=== PATIENT | female | born 1950 | race Caucasian/White ===

== ENCOUNTER 2021-01-31 05:30 | Inpatient (IN) | payer MEDICARE, OTHER, SELFPAY ==
[2021-01-31] VITALS (42 sets, daily range): BP systolic 102–150; BP diastolic 56–103; PULSE 54–209; RESP 14–31; TEMP 36.1–36.8; O2SAT 93–100; BMI 40.6; BMI 41.2
--- NOTE | 2021-01-31 05:38 | EKG12_ITS ---
Test Reason : PALPITATIONS Blood Pressure : / mmHG Vent. Rate : 202 BPM Atrial Rate : 208 BPM P-R Int : 000 ms QRS Dur : 074 ms QT Int : 214 ms P-R-T Axes : 000 022 235 degrees QTc Int : 392 ms Atrial fibrillation Marked ST abnormality, possible inferolateral subendocardial injury Abnormal ECG Confirmed by EZEQUIEL ADAN, LORENZO ([id number]), photograph editor MICHAEL CURTIS ([id number]) on 02/02/2021 9:41:57 AM Referred By: PL Confirmed By:LORENZO NIEVES MD
--- NOTE | 2021-01-31 05:38 | RAD_ITS ---
STUDY: X-RAY CHEST REASON FOR EXAM: Female, 70 years old. chest pain TECHNIQUE: Single AP portable view of the chest. COMPARISON: None. FINDINGS: The lungs are clear and expanded. There is no demonstrated pleural abnormality. Normal size heart. Normal mediastinum and dilcia. Normal visualized pulmonary arteries. There is atherosclerotic calcification of the aortic arch. Normal visualized thoracic spine. Normal visualized ribs, clavicles, and shoulders. There is no demonstrated abnormality of the visualized soft tissue structures of the upper abdomen. RAD/Chest 1 View (Portable) IMPRESSION: No evidence for acute cardiopulmonary pathology. Electronically Signed: Gio Will MD at 6:36 EDT , Service support ,
--- NOTE | 2021-01-31 05:40 | EDS_ITS ---
HPI History of Present Illness Chief Complaint: Palpitations Informant: patient and spouse/S.O. Narrative Narrative: Patient presents with some palpitations and mild aching in her chest. She states she was in bed. She felt fine. She then rolled over on her side and it started. She states she might have been a little bit short of breath or may be just anxious as to why this was happening. She states she is really not hurting now. She states the symptoms come in waves. She has had no recent travel surgery immobilization personal or family history of DVT or PE. She has never had heart problems related to vascular disease nor rhythm problems. No history of thyroid disease. She did take tizanidine before this but has taken it before without problems. No new or changed medications. Never been nauseated. Was not diaphoretic. Not syncopal or presyncopal. She has never had SVT or atrial fibrillation or any rhythm abnormalities. Nothing seems to make it better or worse. PFSH PFSH Medical History Carpal tunnel syndrome on both sides Diabetes GERD (gastroesophageal reflux disease) Home Medications famotidine 20 mg PO QHS 01/31/21 [History Last Taken Unknown] metformin 500 mg PO DAILY 01/31/21 [History Last Taken Unknown] pramipexole 0.375 mg PO QHS 01/31/21 [History Last Taken Unknown] tizanidine 4 mg PO Q8H PRN 01/31/21 [History Last Taken Unknown] tramadol 50 - 100 mg PO Q8H PRN 01/31/21 [History Last Taken Unknown] Allergy/AdvReac Type Severity Reaction Status Date / Time No Known Allergies Allergy Verified 01/31/21 05:34 Surgical History H/O gastric bypass Total knee replacement status Social History Smoking Status: Former smoker ROS ROS ED Constitutional Constitutional ED: Denies chills or fever(s) Eyes Eyes: Denies change in vision ENT ENT ED: Denies rhinorrhea or sore throat Cardiovascular Cardiovascular: Reports chest pain, palpitations and racing heartbeat Respiratory/Chest Respiratory/Chest: Reports dyspnea; Denies cough, dyspnea on exertion or sputum Gastrointestinal Gastrointestinal: Denies abdominal pain, nausea or vomiting Musculoskeletal Musculoskeletal: Denies arthralgias, back pain or neck pain Integumentary Denies rash Neurologic Neurologic: Denies headache(s), paresthesias or weakness Endocrine Endocrinology: Reports other Details: Patient is on Metformin for diabetes. ; Denies polydipsia or polyuria Allergic/Immunologic Allergic/Immunologic ED: Denies urticaria EXAM Physical Exam Const Vital Signs: 01/31/21 05:31 01/31/21 05:33 01/31/21 05:35 Temperature 96.9 F L Temperature Source Temporal Pulse Rate 190 H 209 H Respiratory Rate 18 17 Respiratory Effort Normal Respiratory Pattern Normal Blood Pressure 122/103 H Blood Pressure Mean 109 Blood Pressure Position Blood Pressure Location Pulse Ox 97 100 Oxygen Delivery Method Room Air Room Air 01/31/21 05:40 01/31/21 05:55 01/31/21 06:12 Temperature Temperature Source Pulse Rate 135 H 137 H Respiratory Rate 19 H 15 Respiratory Effort Respiratory Pattern Blood Pressure 141/65 H 130/84 H Blood Pressure Mean 90 99 Blood Pressure Position Semi-Fowlers Blood Pressure Location Right Arm Pulse Ox 97 98 Oxygen Delivery Method Room Air Room Air Room Air Positive well nourished and well developed Constitutional Narrative: Patient is sitting quietly in bed. She carries on a normal conversation. Although she is quite tachycardic, she is nontoxic in appearance. General Appearance ED: well developed and NAD; Negative for pallor HEENT Reports moist mucous membranes Eyes General Eye ED: Negative for pale conjunctiva or scleral icterus Neck no JVD Resp normal respiratory effort and clear to auscultation bilaterally Auscultation: Negative for rales, rhonchi or wheezes Cardio Rate: tachycardic Rhythm: abnormal rhythm GI normal to inspection, nondistended, normoactive bowel sounds and non-tender Palpation: soft Back/Spine no CVA tenderness Extremity normal to inspection General Extremety ED: Negative for edema or tenderness General Extremity: Negative for edema Neuro oriented x3 Sensorium / Orientation: alert Psych mental status grossly normal Skin no rashes or lesions noted General Skin Exam: Negative for jaundice or pallor MDM MDM MDM Narrative Medical decision making narrative: 06: 05 Heart rate is now down between 120 and 140. We will continue to watch. She may need further medications. We will watch blood pressure and heart rate and adjust incrementally. We have been able to get her down to about 120s. That is at 5 mg/h. We are turning up the drip to try to get better control. Patient's not having any chest ache or tightness or dyspnea now. The patient used to have sleep apnea. However, she lost 70 pounds after Neva-en-Y gastric bypass in about 2012. She has not needed it since. Her states that she used to snore but when she lost the weight she does not snore anymore. Lab Data Labs: Laboratory Results - last 24 hr 01/31/21 01/31/21 05:41 05:41 WBC 8.4 RBC 4.16 L Hgb 12.8 Hct 39.6 MCV 95.2 MCH 30.8 MCHC 32.3 RDW Std Deviation 43.9 RDW Coeff of Leo 12.6 Plt Count 285 MPV 10.0 Immature Gran % (Auto) 0.400 Neut % (Auto) 58.1 Lymph % (Auto) 32.9 [place] % (Auto) 7.5 Eos % (Auto) 0.6 Baso % (Auto) 0.5 Absolute Neuts (auto) 4.9 Absolute Lymphs (auto) 2.75 Nucleated RBC % 0 Sodium 140 Potassium 3.8 Chloride 108 H Carbon Dioxide 25.0 Anion Gap 7 BUN 18 Creatinine 0.68 Estim Creat Clear Calc 43.30 Est GFR (MDRD) Af Amer 110 Est GFR (MDRD) Non-Af 91 BUN/Creatinine Ratio 26.5 H Glucose 193 H Calcium 9.0 Troponin I High Sens 18 TSH 1.65 Radiography Diagnostic Testing: Radiology Impression Chest X-Ray 01/31/21 05:38 IMPRESSION: No evidence for acute cardiopulmonary pathology. Electronically Signed: Gio Will MD at 6:36 EDT , Service support , EKG Initial EKG: Comments: EKG shows atrial fibrillation with significant rapid ventricular rate of 202. Diffuse nonspecific ST and T wave changes. QRS duration and QTc are normal. No old for comparison. Critical Care Time Critical Care Time: Yes Critical care time (excluding procedures): 30-74 minutes and - (35 minutes of critical care time. Patient was seen immediately when she came in. We have adjusted medications. I have talked to the patient multiple times. I rechecked her multiple times and followed her rate. We are getting good control of her rate although is not down to totally normal. I have see) Discharge Plan Triage Chief Complaint: Palpitations ED Provider: Kailash Ramos Dx/Rx/DC Orders Clinical Impression: New onset atrial fibrillation, Atrial fibrillation with rapid ventricular response Prescriptions: No Action tramadol 50 mg Tablet 50 - 100 mg PO Q8H PRN (Reason: Pain) RF: 0 famotidine 20 mg Tablet 20 mg PO QHS RF: 0 metformin 500 mg Tablet Extended Release 24 Hr 500 mg PO DAILY RF: 0 tizanidine 4 mg Capsule 4 mg PO Q8H PRN (Reason: Pain) RF: 0 pramipexole 0.375 mg Tablet Extended Release 24 Hr 0.375 mg PO QHS RF: 0 Primary Care Provider: Care Physician,No Primary Referrals: [facility] Doctor,Out of [NON-STAFF] - Disposition Disposition: Acute Care Hospital [facility]
[2021-01-31] MEDS: Aspirin 81 MG TAB.CHEW 324 MG PO (05:50)
[2021-01-31] MEDS: 0.9% Normal Saline 1,000 ML 1000 ML IV (05:50)
[2021-01-31] MEDS: dilTIAZem 25 MG/5 ML Vial 10 MG IV BOLUS (05:50)
[2021-01-31 05:54] LABS: Absolute Lymphocyte Count 2.75 X10^3/uL (0.83-4.51); Absolute Neutrophil Count 4.9 X10^3/uL (2.0-7.7); Basophil# 0.04 X10^3/uL; Basophil% 0.5 % (0-1); Eosinophil# 0.05 X10^3/uL; Eosinophils% 0.6 % (0-5); Hematocrit 39.6 % (37-47); Hemoglobin 12.8 g/dL (12.0-15.0); Lymphocyte # 2.75 X10^3/ul (0.83-4.51); Lymphocyte % 32.9 % (19-41); Mean Corp Hgb Conc 32.3 g/dL (32-36); Mean Corpuscular Hgb 30.8 pg (27.0-32.0); Mean Corpuscular Volume 95.2 fL (81-99); Monocyte# 0.63 X10^3/uL; Monocyte% 7.5 % (0-10); NRBC Flagged by Analyzer 0 % (0-5); Neutrophil # 4.87 X10^3/uL (2.7-7.7); Neutrophil % 58.1 % (47-70); Platelet Count 285 K/mm3 (150-450); RBC Distribution Width CV 12.6 % (11.6-14.6); RBC Distribution Width SD 43.9 fl (35.1-43.9); Red Blood Count 4.16 M/mm3 (4.2-5.4); White Blood Count 8.4 K/mm3 (4.4-11.0)
[2021-01-31 06:20] LABS: Anion Gap 7 (5-15); BUN 18 mg/dL (7-18); BUN/Creat Ratio 26.5 RATIO (10-20); Chloride 108 mmol/L (98-107); Creatinine, Serum 0.68 mg/dL (0.55-1.02); EST Glomerular Filtration Rate 91 mL/min (>60); Est Glom Filt Rate - Afr Amer 110 mL/min (>60); Glucose 193 mg/dL (74-106); Potassium 3.8 mmol/L (3.5-5.1); Sodium Level 140 mmol/L (136-145); Thyroid Stim Hormone (TSH) 1.65 uIU/mL (0.358-3.74); Troponin-I HS 18 pg/mL (3.0-54.0)
--- NOTE | 2021-01-31 06:39 | PCM.HP.STD ---
HPI - General General Date of Admission: 01/31/21 Date of Service: 01/31/21 Chief Complaint: Palpitations, dyspnea. HPI Narrative The patient is a 70 y/o F w/ PMHx: Diabetes mellitus type II, Morbid Obesity, GERD, RLS, Fibromyalgia who presents to the [facility] ED on 01/31/21 with history of onset sudden palpitations while she was in bed, noted it occurred when she turned over with mild generalized ache sensation across the chest with mild associated dyspnea with no history of any prior similar episodes. She noted resolution of pain and dyspnea with rate improvement. She reported the discomfort as an ache only, 06/21. Work-up in the ED included T 96.9, heart rate initially 1 9209, improved currently to 137 on Cardizem drip, BP 130/84, respiratory rate 15, 98% on room air, CBC with WC 8.4, hemoglobin 12.8, platelet 285 without marked shift, BMP unremarkable aside glucose 193, TSH 1.65, high-sensitivity troponin 18, chest x-ray with no acute cardiopulmonary findings, EKG with atrial fibrillation with RVR. In the ED patient ministered Cardizem bolus 10 mg x 1 and transition eventually to Cardizem drip. In the ED patient administered aspirin 324 mg p.o. x1 as well as normal saline bolus. [facility] Medical History (Updated 01/31/21 @ 06:[address] Claribel Thomas MD) Carpal tunnel syndrome on both sides Diabetes Fibromyalgia GERD (gastroesophageal reflux disease) Morbid obesity RLS (restless legs syndrome) Home Medications famotidine 20 mg PO QHS 01/31/21 [History Last Taken Unknown] metformin 500 mg PO DAILY 01/31/21 [History Last Taken Unknown] pramipexole 0.375 mg PO QHS 01/31/21 [History Last Taken Unknown] tizanidine 4 mg PO Q8H PRN 01/31/21 [History Last Taken Unknown] tramadol 50 - 100 mg PO Q8H PRN 01/31/21 [History Last Taken Unknown] Allergy/AdvReac Type Severity Reaction Status Date / Time No Known Allergies Allergy Verified 01/31/21 05:34 Family History (Updated 01/31/21 @ 07:[address] Claribel Thomas MD) Father Heart disease Father with history of aortic aneurysm rupture at the age of 59, passed. Mother Thyroid disorder Surgical History (Updated 01/31/21 @ 07:[address] Claribel Thomas MD) H/O gastric bypass Hx of section S/p bilateral carpal tunnel release Total knee replacement status Social History (Updated 01/31/21 @ 07:[address] Claribel Thomas MD) household members: spouse Smoking Status: Former smoker how long ago did patient quit smoking: Quit 1991, prior 1 pack/day cigarette tobacco usage since age 19. alcohol intake: current alcohol intake frequency: 0-2 drinks per day substance use type: does not use ROS ROS Narrative Admission Review of Systems: CONSTITUTIONAL: No weight loss, fever, chills, + weakness or fatigue. HEENT: Eyes: No visual loss, blurred vision, double vision or yellow sclerae. Ears, Nose, Throat: No hearing loss, sneezing, congestion, runny nose or sore throat. SKIN: No rash or itching, lesions, wounds. CARDIOVASCULAR: + chest pain, chest pressure or chest discomfort, palpitations, No edema, orthopnea, syncopal events. RESPIRATORY: + shortness of breath, No cough or sputum, wheezing, hemoptysis. GASTROINTESTINAL: No anorexia, nausea, vomiting or diarrhea, abdominal pain, melena, BRBPR. GENITOURINARY: No dysuria, frequency, urgency or retention. NEUROLOGICAL: No headache, dizziness, syncope, paralysis, ataxia, numbness or tingling in the extremities, focal weakness, change in bowel or bladder control, seizure. MUSCULOSKELETAL: + muscle, back pain, joint pain or stiffness. HEMATOLOGIC: No anemia, bleeding or bruising. LYMPHATICS: No enlarged nodes. No history of splenectomy. PSYCHIATRIC: No history of depression or anxiety. ENDOCRINOLOGIC: No reports of sweating, cold or heat intolerance. No polyuria or polydipsia. ALLERGIES: No history of asthma, hives, eczema or rhinitis. Vital Signs Vital Signs Vital Signs: 01/31/21 05:31 01/31/21 05:33 01/31/21 05:35 Temperature 96.9 F L Temperature Source Temporal Pulse Rate 190 H 209 H Respiratory Rate 18 17 Respiratory Effort Normal Respiratory Pattern Normal Blood Pressure 122/103 H Blood Pressure Mean 109 Blood Pressure Position Blood Pressure Location Pulse Ox 97 100 Oxygen Delivery Method Room Air Room Air 01/31/21 05:40 01/31/21 05:55 01/31/21 06:12 Temperature Temperature Source Pulse Rate 135 H 137 H Respiratory Rate 19 H 15 Respiratory Effort Respiratory Pattern Blood Pressure 141/65 H 130/84 H Blood Pressure Mean 90 99 Blood Pressure Position Semi-Fowlers Blood Pressure Location Right Arm Pulse Ox 97 98 Oxygen Delivery Method Room Air Room Air Room Air Weight Weight: 229 lb 0.964 oz Body Mass Index (BMI) 40.6 Physical Exam Narrative Physical Examination: General: Awake, alert, oriented x 3 and cooperative, seated upright in the ED bed in no apparent distress, notes resolution of prior chest discomfort and dyspnea with improvement of palpitations, rate improved. Skin: Normal color, normal turgor, no icterus, no cyanosis. HEENT: AT/NC, EOMI, PERRLA, MMM, no carotid bruits or JVD noted. Lungs: Diminished, greater bases, moderate effort, no rales, ronchi or wheezing. Heart: Irregular regular, improving; no gallop, rub audible. Abdomen: Soft, morbidly obese, NTTP, ND, distant normal BS, no obvious evidence of HSM. Extremities: No cyanosis, clubbing, or edema. Neurological: Patient awake, alert, oriented as noted, cognitive function intact; pupils equally reactive to light and accommodation, cranial nerves II-XII grossly normal, moving all 4 extremities, no focal deficits, strength improving, mildly global decreased secondary to acute presentation. Psychiatric: Affect appears fatigued otherwise normal, no acute evidence of depressive or anxiety feelings. Results Lab / Micro Data Result Diagrams: 01/31/21 05:41 01/31/21 05:41 Labs: Laboratory Results - last 24 hr 01/31/21 05:41: WBC 8.4, RBC 4.16 L, Hgb 12.8, Hct 39.6, MCV 95.2, MCH 30.8, MCHC 32.3, RDW Std Deviation 43.9, RDW Coeff of Leo 12.6, Plt Count 285, MPV 10.0, Immature Gran % (Auto) 0.400, Neut % (Auto) 58.1, Lymph % (Auto) 32.9, [place] % (Auto) 7.5, Eos % (Auto) 0.6, Baso % (Auto) 0.5, Absolute Neuts (auto) 4.9, Absolute Lymphs (auto) 2.75, Nucleated RBC % 0 01/31/21 05:41: Sodium 140, Potassium 3.8, Chloride 108 H, Carbon Dioxide 25.0, Anion Gap 7, BUN 18, Creatinine 0.68, Estim Creat Clear Calc 43.30, Est GFR (MDRD) Af Amer 110, Est GFR (MDRD) Non-Af 91, BUN/Creatinine Ratio 26.5 H, Glucose 193 H, Calcium 9.0, Troponin I High Sens 18, TSH 1.65 Radiology Impression Chest X-Ray 01/31/21 05:38 IMPRESSION: No evidence for acute cardiopulmonary pathology. Electronically Signed: Gio Will MD at 6:36 EDT , Service support , Assessment & Plan Assessment/Plan (1) Atrial fibrillation with rapid ventricular response: PLAN: The patient is a 70 y/o F w/ PMHx: Diabetes mellitus type II, Morbid Obesity, GERD, RLS, Fibromyalgia who presents to the [facility] ED on 01/31/21 with history of onset sudden palpitations while she was in bed, noted it occurred when she turned over with mild generalized ache sensation across the chest with mild associated dyspnea. 1. New onset, Paroxsymal atrial fibrillation: EKG in ED w/ atrial fibrillation w/ RVR. Patient administered cardizem bolus and transitioned to cardizem drip in ED. Will admit to PCU, maintain on telemetry, obtain cardiac enzyme serial set, obtain magnesium level, obtain ECHO, obtain TSH level. We will initiate on therapeutic Lovenox. Will continue on cardizem drip with plan for oral transition after 24 hours if appropriate. May consider cardiology consultation pending response to Cardizem. High risk for KAILYN which certainly could contribute to PAF, will request overnight trending pulse oximeter. 2. Diabetes mellitus type II: Hold oral home regimen, ADA diet, accu checks w/ ISS. 3. Morbid Obesity: Weight loss and lifestyle changes encouraged, nutrition consulted. 4. Restless leg syndrome: We will continue nightly pramipexole. 5. Chronic Fibromyalgia: Continue home regimen tramadol and tizanidine PRN. 6. GERD: We will continue patient home famotidine regimen. 7. DVT prophylaxis: SCDs, therapeutic Lovenox as noted. Charges/Coding Visit Charges Inpatient E&M: 71131 Init Hosp L3
--- NOTE | 2021-01-31 06:47 | NURSING ---
dr barlow for dr espinoza
--- NOTE | 2021-01-31 06:53 | NURSING ---
PCU AFIB RVR WHITE
--- NOTE | 2021-01-31 07:08 | NURSING ---
NO OLD EKGS
[2021-01-31 07:46] LABS: Magnesium 2.2 mg/dL (1.6-2.6)
--- NOTE | 2021-01-31 08:01 | ECHOD_ITS ---
Version 2 Reason For Study: PAF Procedure This was a 2D Doppler, Color Flow transthoracic echocardiogram. Exam performed portable in patient room. Left Ventricle Normal LV size. Left ventricular systolic function is normal. The estimated ejection fraction is 55 %. No regional wall motion abnormalities noted. Right Ventricle Normal RV size. Normal systolic function. Atria The left atrium is mildly enlarged. The right atrium is mildly enlarged. Mitral Valve Normal mitral valve. Tricuspid Valve Normal tricuspid valve. Mild (1+) tricuspid valve insufficiency. Pulmonary artery systolic pressure is 36 mmHg. Aortic Valve Trisinus/trileaflet aortic valve. Mild focal aortic valve calcification. Pulmonic Valve Normal pulmonic valve. Great Vessels Normal aortic root. The pulmonary artery is normal size. Normal inferior vena cava. Pericardium/Pleural No pericardial effusion. MMode/2D Measurements & Calculations LVIDd: 4.7 cm IVSd: 1.1 cm LVOT diam: 1.9 cm LVIDs: 2.8 cm LVPWd: 1.1 cm LVOT area: 3.0 cm2 RVDd: 3.4 cm FS: 41.0 % Ao root diam: 3.7 cm LAV(MOD-bp): 70.9 ml LVAd ap4: 25.4 cm2 LAV(MOD-bp) Indexed: 34.7 ml/m2 LVLd ap4: 7.6 cm LAV(MOD-sp2): 67.5 ml EDV(MOD-sp4): 71.2 ml LAV(MOD-sp4): 70.0 ml EDV(sp4-el): 71.6 ml LVAs ap4: 14.3 cm2 LVLs ap4: 6.4 cm ESV(MOD-sp4): 27.4 ml ESV(sp4-el): 27.1 ml EF(MOD-sp4): 61.6 % EF(sp4-el): 62.2 % SV(MOD-sp4): 43.8 ml SV(sp4-el): 44.5 ml LA A4 area: 23.0 cm2 LA dimension(2D): 4.1 cm RA A4 area: 21.7 cm2 Doppler Measurements & Calculations MV E max javon: 121.4 cm/sec Lat Peak E' Javon: 14.1 cm/sec Med Peak E' Javon: 10.0 cm/sec E/E' lat: 8.6 E/E' med: 12.2 Ao V2 max: 181.6 cm/sec LV V1 max: 128.2 cm/sec TR max javon: 285.5 cm/sec Ao max P.3 mmHg LV V1 max P.6 mmHg TR max P.6 mmHg NOLVIA(V,D): 2.1 cm2 ECHO/Echo Complete Interpretation Summary Normal LV size. Left ventricular systolic function is normal. The estimated ejection fraction is 55 %. Pulmonary artery systolic pressure is 36 mmHg. Mild (1+) tricuspid valve insufficiency. Mild focal aortic valve calcification. The left atrium is mildly enlarged. The right atrium is mildly enlarged. Ordering Physician: Claribel Thomas Performed By: Lesvia Moore RDCS, RVT
[2021-01-31 08:50] LABS: Bedside Glucose 148 mg/dL (70-110)
[2021-01-31 08:55] LABS: Troponin-I HS 36 pg/mL (3.0-54.0)
[2021-01-31] MEDS: 0.9% Normal Saline 1,000 ML 100 ML IV ×2 (09:12→20:32)
[2021-01-31] MEDS: Enoxaparin 100 MG/ML Syringe SC ×2 (09:12→20:32)
--- NOTE | 2021-01-31 11:30 | CASEMGMT ---
RN CM Face to Face with patient for initial transition planning/care coordination assessment. RN CM introduced self and role at [facility]. Patient lying in bed, alert and oriented. Patient willing to participate in assessment and is able to answer all questions appropriately. Care providers, pharmacy, and demographics verified. Patient wishes to discharge home, denies need for home health at this time. Patient states she has no further needs or concerns at this time. CM to follow for discharge planning needs that may arise. PCP: Obinna Cardenas Specialists: none Preferred Pharmacy: [facility] Insurance: [facility] Prescription Benefit: yes Living Will/HPOA: yes, Ricardo Austin LNOK: Living Arrangements: Patient lives with in a 2 story home with bed and bath on first floor. Patient states she is independent at home. Transportation: self/ DME/HHC: Patient has shower chair, raised toilet, and cane at home. Patient has previously been to [facility]. Disposition Plan: Patient to discharge home with family support and follow-up plans in place. Sandi AMNUEL, RN, CM
[2021-01-31] MEDS: Insulin Lispro 100 UNIT/ML INSULN.PEN SC (11:59)
[2021-01-31 12:01] LABS: Bedside Glucose 166 mg/dL (70-110)
[2021-01-31 12:53] LABS: Troponin-I HS 53 pg/mL (3.0-54.0)
--- NOTE | 2021-01-31 14:52 | EKG12_ITS ---
Test Reason : AM EKG Blood Pressure : / mmHG Vent. Rate : 060 BPM Atrial Rate : 060 BPM P-R Int : 158 ms QRS Dur : 088 ms QT Int : 442 ms P-R-T Axes : 047 -02 -05 degrees QTc Int : 442 ms Normal sinus rhythm Normal ECG Confirmed by [place] ADAN, WILMER ([id number]), chief of party MICHAEL CURTIS ([id number]) on 02/05/2021 1:48:51 PM Referred By: BRITTANY Confirmed By:WILMER ALEJANDRA MD
[2021-01-31 16:50] LABS: Bedside Glucose 122 mg/dL (70-110)
[2021-01-31] MEDS: dilTIAZem 60 MG Tablet PO (18:26)
--- NOTE | 2021-01-31 19:19 | PCM.HOSP.N ---
Hospitalist Note Patient was seen and examined today, she was admitted early this morning for new onset atrial fib with RVR, late today she converted to normal sinus rhythm on a Cardizem drip, I had a discussion with her concerning need for anticoagulation and use of rate limiting agents, due to her complaints of chest discomfort during her A. fib and the fact that she is diabetic, I have elected to schedule her for a pharmacological stress test tomorrow, patient agrees to this. Patient will be transition to oral Cardizem now and her Cardizem drip will be stopped.
[2021-01-31] MEDS: 0.9% Saline Lock 10 ML Syringe IV (20:32)
[2021-01-31] MEDS: Acetaminophen 325 MG Tablet 650 MG PO (20:33)
[2021-01-31 22:00] LABS: Bedside Glucose 138 mg/dL (70-110)
[2021-01-31] MEDS: Pramipexole Di-HCl 0.25 MG Tablet PO (22:25)
[2021-01-31] MEDS: Famotidine 20 MG Tablet PO (22:25)
[2021-01-31] MEDS: Pramipexole Di-HCl 0.5 MG Tablet PO (22:25)
--- NOTE | 2021-01-31 23:12 | PCS.PANDOC ---
PANDEMIC DOCUMENTATION INITIATED: Date: 12/25/2020 Time: 190
[2021-02-01 02:48] VITALS: PULSE 64
[2021-02-01] MEDS: traMADol 50 MG Tablet PO (03:23)
[2021-02-01 03:45] VITALS: BP 149/72; PULSE 74; RESP 18; TEMP 37.1; O2SAT 95
[2021-02-01] MEDS: 0.9% Normal Saline 1,000 ML 100 ML IV (05:38)
[2021-02-01 05:46] LABS: Bedside Glucose 112 mg/dL (70-110)
--- NOTE | 2021-02-01 05:55 | EKG12_ITS ---
Test Reason : REPEAT Blood Pressure : / mmHG Vent. Rate : 064 BPM Atrial Rate : 064 BPM P-R Int : 164 ms QRS Dur : 084 ms QT Int : 402 ms P-R-T Axes : 047 -09 -12 degrees QTc Int : 414 ms Normal sinus rhythm Normal ECG Confirmed by [place] ADAN, WILMER ([id number]), visual effects editor MICHAEL CURTIS ([id number]) on 02/05/2021 1:49:22 PM Referred By: HOSP Confirmed By:WILMER ALEJANDRA MD
[2021-02-01 06:16] LABS: Absolute Lymphocyte Count 3.13 X10^3/uL (0.83-4.51); Absolute Neutrophil Count 3.5 X10^3/uL (2.0-7.7); Basophil# 0.04 X10^3/uL; Basophil% 0.5 % (0-1); Eosinophil# 0.12 X10^3/uL; Eosinophils% 1.6 % (0-5); Hematocrit 34.1 % (37-47); Hemoglobin 10.8 g/dL (12.0-15.0); Lymphocyte # 3.13 X10^3/ul (0.83-4.51); Lymphocyte % 41.9 % (19-41); Mean Corp Hgb Conc 31.7 g/dL (32-36); Mean Corpuscular Hgb 30.7 pg (27.0-32.0); Mean Corpuscular Volume 96.9 fL (81-99); Monocyte# 0.65 X10^3/uL; Monocyte% 8.7 % (0-10); NRBC Flagged by Analyzer 0 % (0-5); Neutrophil # 3.51 X10^3/uL (2.7-7.7); Platelet Count 216 K/mm3 (150-450); RBC Distribution Width CV 12.7 % (11.6-14.6); RBC Distribution Width SD 45.1 fl (35.1-43.9); Red Blood Count 3.52 M/mm3 (4.2-5.4); White Blood Count 7.5 K/mm3 (4.4-11.0)
[2021-02-01 06:32] VITALS: PULSE 55
[2021-02-01 06:39] LABS: ALB/GLOB Ratio 0.9 RATIO (0.9-2.4); AST(SGOT) 12 U/L (15-37); Alanine Aminotransfer ALT/SGPT 18 U/L (13-56); Alkaline Phosphatase 53 U/L (45-117); Anion Gap 5 (5-15); BUN 13 mg/dL (7-18); BUN/Creat Ratio 30.2 RATIO (10-20); Calcium,Total 7.9 mg/dL (8.5-10.1); Chloride 112 mmol/L (98-107); Cholesterol 160 mg/dL (200); Creatinine, Serum 0.43 mg/dL (0.55-1.02); EST Glomerular Filtration Rate 154 mL/min (>60); Est Glom Filt Rate - Afr Amer 186 mL/min (>60); Globulin 3.3 g/dL (2.2-4.2); Glucose 122 mg/dL (74-106); High Density Lipoprotein 57 mg/dL; Potassium 3.7 mmol/L (3.5-5.1); Protein, Total 6.3 g/dL (6.4-8.2); Sodium Level 142 mmol/L (136-145); Triglycerides 96 mg/dL; Very Low Density Lipoprotein 19 mg/dL (5-40)
[2021-02-01 07:49] VITALS: O2SAT 94
[2021-02-01 08:04] VITALS: BP 149/80; PULSE 74; RESP 18; TEMP 37.1; O2SAT 97
[2021-02-01] MEDS: Acetaminophen 325 MG Tablet 650 MG PO (08:10)
[2021-02-01 10:16] LABS: Bedside Glucose 111 mg/dL (70-110)
[2021-02-01 10:54] VITALS: PULSE 76
--- NOTE | 2021-02-01 12:30 | PCM.DC ---
Discharge Instructions Diet Discharge Diet: 1800 Calorie Control Diet Activity Discharge Activity: Return to Normal Activity Weight Bearing Status: Full weight bearing Follow Up Care Test Results: Test results from this visit will be discussed in further detail at your follow-up appointment, if applicable. Discharge Plan Admission Admit Date/Time: 01/31/21 06:43 Primary Reason for Your Visit: a-fib Attending Provider: Abdulaziz Denney Primary Care Provider: Care Physician,Hali Primary Discharge Orders/Prescriptions Prescriptions: New Eliquis 5 mg tablet 5 mg PO BID Qty: 1 RF: 0 diltiazem HCl [Cardizem CD] 180 mg capsule,extended release 24hr 180 mg PO DAILY Qty: 1 RF: 0 omeprazole 40 mg capsule,delayed release(DR/EC) 40 mg PO DAILY Qty: 1 RF: 0 Continued tramadol 50 mg Tablet 50 - 100 mg PO Q8H PRN (Reason: Pain) RF: 0 metformin 500 mg Tablet Extended Release 24 Hr 500 mg PO DAILY RF: 0 tizanidine 4 mg Capsule 4 mg PO Q8H PRN (Reason: Pain) RF: 0 pramipexole 0.375 mg Tablet Extended Release 24 Hr 0.75 mg PO QHS RF: 0 Discontinued famotidine 20 mg Tablet 20 mg PO QHS RF: 0 Referrals / Follow Up: Amanda Yang MD [STAFF PHYSICIAN] - Within 1 Week (office will contact you) Disposition Disposition (needs filled in before D/C Order can be placed): Home, Self Care
--- NOTE | 2021-02-01 13:47 | CASEMGMT ---
KAY CM NOTE: Pt being discharged home on Eliquis. Dr Denney states he has provided pt w/Eliquis 30-day savings card. Amira MANUEL RN CM
--- NOTE | 2021-02-01 19:37 | PCM.DC.SUM ---
Providers Date of Admission: 01/31/21 Date of Discharge: 02/01/21 Primary Care Physician: No Primary Care Phys Reason For Visit: PAF W/ RVR Diagnosis Discharge Diagnosis (1) Atrial fibrillation with rapid ventricular response: Status: Acute Code(s): I48.91 - Unspecified atrial fibrillation Plan: 1. New onset atrial fibrillation-converted to normal sinus rhythm #2 type 2 diabetes #3 osteoarthritis Medications at Discharge Home Medications metformin 500 mg PO DAILY 01/31/21 pramipexole 0.75 mg PO QHS 01/31/21 tizanidine 4 mg PO Q8H PRN 01/31/21 tramadol 50 - 100 mg PO Q8H PRN 01/31/21 apixaban [Eliquis] 5 mg PO BID #1 tab 02/01/21 diltiazem HCl [Cardizem CD] 180 mg PO DAILY #1 cap 02/01/21 omeprazole 40 mg PO DAILY #1 cap 02/01/21 Hospital Course Operations None Procedures 2-D Echocardiogram Summary of Care Provided Minutes Spent on Discharge: 31 Hospital Course: 70-year-old white female was seen in the emergency room at [facility] with a chief complaint of palpitations and chest discomfort, she was found to be in atrial fibrillation with a rapid ventricular response of approximately 200 bpm, she was given IV Cardizem in the emergency room with some slowing of her rate. Patient's cardiac enzymes were unremarkable, she was admitted to PCU on a Cardizem drip, serial enzymes remain normal. Several hours after she was admitted, the patient converted to normal sinus rhythm. Patient's echocardiogram returned with no significant abnormalities noted on the echocardiogram. Patient was scheduled for a resting nuclear stress test the following morning on 02/01/2021 however, due to technical difficulties, the test was not able to be performed and it was felt that the patient did not need to remain in the hospital to have the test done on 02/02/2021. I called and arranged for the patient to be seen by a primary care physician next week and I called him to go over the case with him (Dr. García) and asked him to order an outpatient resting pharmacological nuclear stress test on the patient. Patient is due to have upcoming surgery on her left knee in February of this year and I think it would be beneficial if she had a stress test before then to clear her for surgery. On 02/01/2021, patient was seen and examined: On examination she appeared in good health and spirits, she does not appear to be in any distress. Vital signs as documented. Skin warm and dry and without overt rashes. Neck without JVD, thyroid appears normal, trachea is midline, neck is supple. Lungs clear, normal air movement was noted. Heart exam notable for regular rhythm, normal sounds and absence of murmurs, rubs or gallops. Abdomen unremarkable and without evidence of organomegaly, masses, or abdominal aortic enlargement, bowel sounds are present in all 4 quadrants, no abdominal tenderness was noted. Extremities nonedematous, no cyanosis was noted, no clubbing was noted. Neuro: Cranial nerves II through XII are grossly intact, no focal motor deficits were noted, sensation to light touch and pinprick is intact, motor exam 5/5 throughout. Psych: Patient is alert and oriented x3, she does not appear anxious or depressed, she does not appear agitated. Patient was discharged home in stable condition on 02/01/2021. Weight / BMI Weight Weight: 106 kg Body Mass Index (BMI) 41.2 ABG / Lab / Microbiology Data Result Diagrams: 02/01/21 05:55 02/01/21 05:55 Laboratory: Laboratory Results - last 24 hr 01/31/21 20:29: POC Glucose 138 H 02/01/21 05:37: POC Glucose 112 H 02/01/21 05:55: WBC 7.5, RBC 3.52 L, Hgb 10.8 L, Hct 34.1 L, MCV 96.9, MCH 30.7, MCHC 31.7 L, RDW Std Deviation 45.1 H, RDW Coeff of Leo 12.7, Plt Count 216, MPV 10.0, Immature Gran % (Auto) 0.300, Neut % (Auto) 47.0, Lymph % (Auto) 41.9 H, [place] % (Auto) 8.7, Eos % (Auto) 1.6, Baso % (Auto) 0.5, Absolute Neuts (auto) 3.5, Absolute Lymphs (auto) 3.13, Nucleated RBC % 0 02/01/21 05:55: Sodium 142, Potassium 3.7, Chloride 112 H, Carbon Dioxide 25.0, Anion Gap 5, BUN 13, Creatinine 0.43 L, Estim Creat Clear Calc 43.30, Est GFR (MDRD) Af Amer 186, Est GFR (MDRD) Non-Af 154, BUN/Creatinine Ratio 30.2 H, Glucose 122 H, Calcium 7.9 L, Total Bilirubin 0.30, AST 12 L, ALT 18, Alkaline Phosphatase 53, Total Protein 6.3 L, Albumin 3.0 L, Globulin 3.3, Albumin/Globulin Ratio 0.9, Triglycerides 96, Cholesterol 160, LDL Cholesterol 84, VLDL Cholesterol 19, HDL Cholesterol 57 02/01/21 10:09: POC Glucose 111 H D/C Instructions Discharge Diet: 1800 Calorie Control Diet Weight Bearing Status: Full weight bearing Meaningful Use Info Meaningful Use Diagnoses (Choose all that apply): None applicable Discharge Plan Admission Admit Date/Time: 01/31/21 06:43 Primary Reason for Your Visit: kassy-elizabeth Attending Provider: Abdulaziz Denney Primary Care Provider: Care Physician,No Primary Discharge Orders/Prescriptions Prescriptions: New Eliquis 5 mg tablet 5 mg PO BID Qty: 1 RF: 0 diltiazem HCl [Cardizem CD] 180 mg capsule,extended release 24hr 180 mg PO DAILY Qty: 1 RF: 0 omeprazole 40 mg capsule,delayed release(DR/EC) 40 mg PO DAILY Qty: 1 RF: 0 Continued tramadol 50 mg Tablet 50 - 100 mg PO Q8H PRN (Reason: Pain) RF: 0 metformin 500 mg Tablet Extended Release 24 Hr 500 mg PO DAILY RF: 0 tizanidine 4 mg Capsule 4 mg PO Q8H PRN (Reason: Pain) RF: 0 pramipexole 0.375 mg Tablet Extended Release 24 Hr 0.75 mg PO QHS RF: 0 Discontinued famotidine 20 mg Tablet 20 mg PO QHS RF: 0 Referrals / Follow Up: Amanda Yang MD [STAFF PHYSICIAN] - Within 1 Week (office will contact you) Disposition Disposition (needs filled in before D/C Order can be placed): Home, Self Care Charges/Coding Visit Charges Inpatient E&M: 45289 Disch Hosp
== END 2021-02-01 14:10 | disposition home or self-care (01) | DRG 309 ==
LOC: ED 06:57 → PCU 08:14
PROVIDERS: Admitting Provider Family Medicine; Emergency Provider Emergency Medicine; Visit Provider Internal Medicine
DX: I48.91 Unspecified atrial fibrillation (principal); Z68.41 Body mass index [BMI] 40.0-44.9, adult; R07.9 Chest pain, unspecified; E11.9 Type 2 diabetes mellitus without complications; E66.01 Morbid (severe) obesity due to excess calories; G25.81 Restless legs syndrome; G56.03 Carpal tunnel syndrome, bilateral upper limbs; M19.90 Unspecified osteoarthritis, unspecified site; K21.9 Gastro-esophageal reflux disease without esophagitis; M79.7 Fibromyalgia; Z87.891 Personal history of nicotine dependence; Z98.84 Bariatric surgery status; Z79.899 Other long term (current) drug therapy; Z79.84 Long term (current) use of oral hypoglycemic drugs
CPT/HCPCS: 36415; 71045; 80048; 80053; 80061; 82962; 83735; 84443; 84484; 85025; 93005; 93306; 94762; 97802; 99251; 99285; J7030; Q9957; A4216; G0463; J3490

== ENCOUNTER 2021-08-08 12:00 | Outpatient (RCR) | payer MEDICARE, OTHER, SELFPAY ==
--- NOTE | 2021-06-11 14:44 | HP.PTEVAL_ITS ---
Patient's Visit Information BRIANNE FERNANDES is a 71 year old F referred to Physical Therapy by TEODORO GRAVES with a diagnosis of L Revision TKR. Date of Evaluation: 06/11/21 Physical Therapist: RAYA Higuera - Visit Plan Frequency: 2-3x /Week Duration: 2 Months Plan: 2-3X/ week for 8 weeks for L knee AROM, AAROM, PROM, stretching, strengthening, gait training with a HEP - Subjective Pt had L TKR revision on 05-07-21. Dr put a massive part in her knee that are much longer this time. She is walking with a cane. It has been a lot more painful. She has been a little better the last couple of days. Has not been sl eeping for more than 2 hours at a time. She also has been having sciatica pain since the day before the surgery. She is concerned that the sciatica is really bad. The sciatica shooting pains are not as bad. She has been having PT in her house for a couple of weeks. She went off the hydrocodone a few days ago. Now is taking 2 tramadol and 2 extra strength Tylenol. She has stairs at home but does not go down them but once a day. (she has pain with recip on the stairs before and now after the surgery. She normally does not use a cane. She still drives and drove a few days ago. - Pain L knee pain Pain Intensity (Out of 10): 4 Pain Intensity Range: 4 - Objective Gait: walks with a straight cane with decrease stance time on the L LE and almost all of her weight on the R LE and decreased knee flexion L and decreased stride length, stance time, and heel to toe gait pattern. L knee ext -16 degrees from full extension and 95 degrees knee flexion. SLR L... increase groin pain. not able to get terminal knee extension. able to do X 5 in a row and then fatigues out. Tight L gastroc -Homans sign. Stairs: up and down recip with 2 hand rails with verbal cues to weight shift onto the L side when ascending the stairs - Balance/Special Test Scores Lower Extremity Functional Score: 33 - Goals Goal 1:: I HEP Goal Time Frame: 6-8 Weeks Goal 2:: Increase L knee AROM -5 degrees to 120 degrees L knee flexion Goal Time Frame: 6-8 Weeks Goal 3:: Up and down stairs recip with 1 hand rail for safety Goal Time Frame: 4-6 Weeks Goal 4:: Be able to sit to stand from a chair with no UE support X 3 in a row Goal Time Frame: 6-8 Weeks Goal 5:: Be able to walk with no AD or antalgic gait Goal Time Frame: 6-8 Weeks - Rehabilitation Potential Rehabilitation Potential: Good - Anticipated Interventions Patient/Client Instruction: Educate patient on: Condition, Plan of Care For the Purpose of:: To decrease pain, To decrease swelling/inflammation, To increase ROM, To improve nutrient delivery to tissue, To improve muscle performance and motor function, To improve ability to perform ADL's, To increase tolerance to activity/condition/position, To improve performance and independence with ADL's, To decrease level of supervision to perform tasks, To improve ability of physical actions for home/community/work/leisure, To improve gait and locomotor functions, To improve health of tissue, To decrease soft tissue restriction, To increase flexibility/ROM, To improve endurance, To improve balance, To improve safety with gait Therapeutic Exercise to Include: Strength training, Balance training, Postural training, Flexibilty training, Gait and locomotor training, Neuromotor development, Passive ROM, Active ROM For the Purpose of:: To decrease pain, To decrease swelling/inflammation, To increase ROM, To improve nutrient delivery to tissue, To improve muscle performance and motor function, To improve ability to perform ADL's, To increase tolerance to activity/condition/position, To improve performance and independence with ADL's, To decrease level of supervision to perform tasks, To improve gait and locomotor functions, To improve health of tissue, To decrease soft tissue restriction, To increase flexibility/ROM, To improve balance, To improve safety with gait Functional Training to Include: Gait training For the Purpose of:: To improve gait and locomotor functions, To improve safety with gait Manual Therapy Techniques to Include: Mobilization, Passive ROM, Soft tissue mobilization For the Purpose of:: To increase ROM, To improve nutrient delivery to tissue, To improve muscle performance and motor function Thank you for the opportunity to evaluate your patient. For Medicare and Medicare HMO plans, please review the plan of care and approve it. It will need to be FAXED BACK to us at [phone] for Medicare purposes. For Medicare only, by signing this I certify the plan of care. Please let me know if there are questions or concerns regarding this plan of care. Physician Signature: Date:
--- NOTE | 2021-07-03 13:38 | HP.PTREVAL_ITS ---
TEODORO GRAVES, It has been my pleasure to treat BRIANNE FERNANDES over the last 9 visits for L Revision TKR. Please see the progress note below for an update on the physical therapy plan of care! Subjective: Pt reports that her L leg and back are killing her. She needs to go and see her surgeon again. They told her to start Gabapetin again and she has to go and pick that up Objective/Function: Stairs: up and down recip with 2 hand rails with increase L leg weakness. Sit to stands with no arms X 3. L knee AROM -8 degrees and 110 degrees flexion. Gait: Pt walks with WBOS and decreased heel to toe and knee bend with gait and decreased stance time on the L LE. Plan Plan: PT for additional 2X/ week for additional 4 weeks. Please work extension/flex ROM. 2-3X/ week for 8 weeks for L knee AROM, AAROM, PROM, stretching, strengthening, gait training with a HEP Balance/Gait/Functional tests - Balance/Special Test Scores Lower Extremity Functional Score: 42 Goals Goal 1:: I HEP Goal Time Frame: 6-8 Weeks Goal Progress: Goal Met Goal 2:: Increase L knee AROM -5 degrees to 120 degrees L knee flexion Goal Time Frame: 6-8 Weeks Goal Progress: Progressing Goal 3:: Up and down stairs recip with 1 hand rail for safety Goal Time Frame: 4-6 Weeks Goal Progress: Progressing Goal 4:: Be able to sit to stand from a chair with no UE support X 3 in a row Goal Time Frame: 6-8 Weeks Goal Progress: Goal Met Goal 5:: Be able to walk with no AD or antalgic gait Goal Time Frame: 6-8 Weeks Goal Progress: Progressing Anticipated Interventions Patient/Client Instruction: Educate patient on: Condition, Plan of Care For the Purpose of:: To decrease pain, To decrease swelling/inflammation, To increase ROM, To improve nutrient delivery to tissue, To improve muscle performance and motor function, To improve ability to perform ADL's, To increase tolerance to activity/condition/position, To improve performance and independence with ADL's, To decrease level of supervision to perform tasks, To improve ability of physical actions for home/community/work/leisure, To improve gait and locomotor functions, To improve health of tissue, To decrease soft tissue restriction, To increase flexibility/ROM, To improve endurance, To improve balance, To improve safety with gait Therapeutic Exercise to Include: Strength training, Balance training, Postural training, Flexibilty training, Gait and locomotor training, Neuromotor development, Passive ROM, Active ROM For the Purpose of:: To decrease pain, To decrease swelling/inflammation, To increase ROM, To improve nutrient delivery to tissue, To improve muscle performance and motor function, To improve ability to perform ADL's, To increase tolerance to activity/condition/position, To improve performance and independence with ADL's, To decrease level of supervision to perform tasks, To improve gait and locomotor functions, To improve health of tissue, To decrease soft tissue restriction, To increase flexibility/ROM, To improve balance, To improve safety with gait Functional Training to Include: Gait training For the Purpose of:: To improve gait and locomotor functions, To improve safety with gait Manual Therapy Techniques to Include: Mobilization, Passive ROM, Soft tissue mob ilization For the Purpose of:: To increase ROM, To improve nutrient delivery to tissue, To improve muscle performance and motor function Please do not hesitate to contact me at [phone] by phone or if you have questions or concerns regarding this new plan of care! Sincerely, Jennie De Jesus, MPT
--- NOTE | 2021-08-08 12:45 | HP.PTDCSUM ---
It has been my pleasure to treat BRIANNE FERNANDES referred by TEODORO GRAVES, with the diagnosis of L Revision TKR for a total of 21 visit(s). Discharge Date: 08/08/21 Please see the following information for a summary of their discharge status. Subjective: Pt feels good. SHe is tired and not sleeping well do to stress of moving. This is her last appt. She still has IT Band/sciatica pain but it is better. L knee pain Pain Intensity (Out of 10): 0 back and leg pain Pain Intensity (Out of 10): 0 % Improvement: 95 Objective/Function: L knee AROM: -5 degrees from full extension to L knee flex 115 degrees. Stairs: Pt able to go up and down recip with 2 hand rails but does have increase stiffness descending and weakness on the L with ascending. Gait: pt walking much better with no AD but she does tend to walk with increase stance time on the R LE. TUG 7.43. Patella girth 50. 6 inch suprapatellar 62. Knee flexion 115 L. Knee ext -5 degrees L. Knee flex 21.1#. Knee ext 28.7# Goal 1:: I HEP Goal Progress: Goal Met Goal 2:: Increase L knee AROM -5 degrees to 120 degrees L knee flexion Goal Progress: Progressing Goal 3:: Up and down stairs recip with 1 hand rail for safety Goal Progress: Goal Met Goal 4:: Be able to sit to stand from a chair with no UE support X 3 in a row Goal Progress: Goal Met Goal 5:: Be able to walk with no AD or antalgic gait Goal Progress: Progressing Plan: DC PT to HEP Discharge Comments: DC PT to HEP If there are questions or concerns regarding this patient's physical therapy, please feel free to call me at [phone]. Thank you for the referral of this patient. Sincerely, Jennie De Jesus, MPT Balance/Gait/Functional tests - Balance/Special Test Scores Lower Extremity Functional Score: 53 WOMAC Total Score: 20 WOMAC Percentage: [phone]
== END 2021-08-08 19:00 | disposition home or self-care (01) ==
LOC: PT 12:00
PROVIDERS: PCP Internal Medicine
DX: T84.033D Mechanical loosening of internal left knee prosthetic joint, subsequent encounter (principal); M17.11 Unilateral primary osteoarthritis, right knee
CPT/HCPCS: 97110; 97116; 97140; 97161; 97530